=== PATIENT | female | born 1990 | race Asian ===

== ENCOUNTER → 2022-10-23 08:46 | Outpatient (CLI) | payer SELFPAY ==
--- NOTE | ~2022-10-23 | US_ITS ---
EXAMINATION: US breast LT complete HISTORY: Diffuse left breast pain TECHNIQUE: Complete left breast ultrasound is performed including all four quadrants and the subareol ar aspect of the breast. FINDINGS: There is a 3 mm cyst at the 2:00 location 3 cm from the nipple. There is a 6 mm x 2 mm oval , circumscribed, parallel, hypoechoic mass with central echogenicity, no posterior features, and no i nternal vascularity at the 2:00 location 3 cm from the nipple. IMPRESSION: 1. No specific sonographic correlate is identified for the patient's left breast pain. Further evalua tion at this time should be based on clinical assessment. Continued follow-up physical examination is recommended. 2. Probably benign mass at the 2:00 location 3 cm from the nipple. Follow-up targeted left breast ult rasound in six months is recommended. BI-RADS category 3, probably benign findings. Reviewed, dictated and finalized at location A. [employer] IMPRESSION: 1. No specific sonographic correlate is identified for the patient's left breas t pain. Further evaluation at this time should be based on clinical assessment. Continued follow-up physical examination is recommended. 2. Probably benign mass at the 2:00 location 3 cm from the nipple. Follow-up ta rgeted left breast ultrasound in six months is recommended. BI-RADS category 3, probably benign findings.
== END ==
DX: N64.4 Mastodynia (principal); R92.8 Other abnormal and inconclusive findings on diagnostic imaging of breast
CPT/HCPCS: 76641